=== PATIENT | female | born 1955 | race Caucasian/White ===

== ENCOUNTER 2018-10-27 18:17 | Emergency (ER) | payer BC, OTHER ==
[~2018-10-27] VITALS: Ht 154.9 cm; Wt 68.0 kg
[~2018-10-27 18:17] MED LIST: AZITHROMYCIN 2250 MG PO; IBUPROFEN 200200 M1 PO; IBUPROFEN 600600 M1 PO; PHENERGAN-CODE120 ML PO; PROAIR HFA8.5 GM IH; TIZANIDINE HCL4 MG PO
[2018-10-27] MEDS ORDERED: PREDNISONE 20 M20 MG PO (19:08)
[2018-10-27] MEDS ORDERED: PROMETHAZINE V118 M1 PO (19:08)
[2018-10-27] MEDS ORDERED: DOXYCYCLINE 10100 MG PO (19:08)
[2018-10-27] MEDS ORDERED: PROVENTIL HFA6.7 G1 INH (19:10)
[2018-10-27 19:15] VITALS: BP 132/70
== END 2018-10-27 19:16 | disposition home or self-care (01) ==
LOC: ER 18:17
DX: J18.9 Pneumonia, unspecified organism (principal); F17.210 Nicotine dependence, cigarettes, uncomplicated; J44.9 Chronic obstructive pulmonary disease, unspecified

== ENCOUNTER 2018-11-18 08:18 | Emergency (ER) | payer BC, OTHER ==
[~2018-11-18] VITALS: Ht 154.9 cm; Wt 68.0 kg
[~2018-11-18 08:18] MED LIST changes: +DOXYCYCLINE 10100 MG PO; +PREDNISONE 20 M20 MG PO; +PROMETHAZINE V118 M1 PO; +PROVENTIL HFA6.7 G1 INH
[2018-11-18 08:33] VITALS: BP 120/57
[2018-11-18] MEDS ORDERED: VIRTUSSIN AC L118 ML PO (09:05)
== END 2018-11-18 09:15 | disposition home or self-care (01) ==
LOC: ER 08:18
DX: R05 Cough (principal); F17.210 Nicotine dependence, cigarettes, uncomplicated; J44.9 Chronic obstructive pulmonary disease, unspecified

== ENCOUNTER 2019-03-25 07:13 | Emergency (ER) | payer BC, OTHER ==
[~2019-03-25] VITALS: Ht 157.5 cm; Wt 72.6 kg
[~2019-03-25 07:13] MED LIST changes: +VIRTUSSIN AC L118 ML PO
[2019-03-25] MEDS ORDERED: FLOVENT HFA 4444 MCG INH (08:21)
[2019-03-25] MEDS ORDERED: TESSALON PERLE100 MG PO (08:21)
[2019-03-25 08:56] LABS: ABSOLUTE NEUTROPHILS 8.2 thou/uL (1.4-8.2); BASOPHILS 0.4 % (0.0-2.0); EOSINOPHILS 0.6 % (0.0-3.0); HEMATOCRIT 42.4 % (37.0-47.0); HEMOGLOBIN 14.2 gm/dL (12.0-15.0); LYMPHOCYTES 18.4 % (24.0-44.0); MCH 29.3 pg (26.0-34.0); MCHC 33.5 g/dL (28.0-37.0); MCV 87.4 fL (80.0-100.0); MONOCYTES 9.3 % (1.0-8.0); PLATELET COUNT 133 thou/uL (150-400); POLYS 71.3 % (36.0-66.0); RBC 4.85 mil/uL (4.20-5.00); RDW 12.8 % (10.5-14.5); WBC 11.6 thou/uL (4.0-11.0)
[2019-03-25 09:05] LABS: ANION GAP 9 mmol/L (7-16); BUN 10 mg/dL (7-18); CHLORIDE 103 mmol/L (98-107); CO2 26 mmol/L (21-32); CREATININE 0.7 mg/dL (0.6-1.0); GLUCOSE 132 mg/dL (74-106); POTASSIUM 3.6 mmol/L (3.5-5.1); SODIUM 138 mmol/L (136-145)
[2019-03-25 09:16] LABS: ALBUMIN 3.4 g/dL (3.4-5.0); MAGNESIUM 1.8 mg/dL (1.8-2.4); SGOT 18 U/L (15-37); SGPT 23 U/L (30-65); TOTAL BILIRUBIN 0.6 mg/dL (<0.1-1.0); TOTAL PROTEIN 7.8 g/dL (6.4-8.2); TROPONIN-I <0.06 ng/mL (<0.06)
[2019-03-25] MEDS ORDERED: PROMETHAZINE-C473 ML PO (09:27)
--- NOTE | 2019-03-25 09:36 | EKG ---
[address] [address] ELECTROCARDIOGRAM REPORT Name: CHRISTIANO MATHEWS [id number] ������������������ Admission: 03/25/19 ������������������ Attend Phys: Discharge: ������������������ Date of : 55 Report #: [id number] ����������������������������������������������������������������� [id number] THIS REPORT FOR: //name// [facility] ED Test Date: 2019-03-25 Test Time: 07:54:08 Pat Name: CHRISTIANO MATHEWS Department: Room: Gender: F Director Of Residential Services: ULISES : 1955 Requested By: Albert Douglass Order Number: [id number] MD: Obdulio Bansal Measurements Intervals [place] Rate: 78 P: 82 SD: 151 QRS: 72 QRSD: 96 T: 64 QT: 396 QTc: 452 Interpretive Statements Sinus rhythm Normal tracing No previous ECG available for comparison Electronically Signed On 03-25-2019 9:36:18 CDT by Obdulio Bansal [email or web address] ��������������������������������������������� <ELECTRONICALLY SIGNED> ���������������������������������������� By: Obdulio Bansal MD, [facility] ��������������������������������������������� 03/25/19 [id number] Obdulio Bansal MD, FACC /EPI
[2019-03-25 09:41] VITALS: BP 111/70
== END 2019-03-25 09:38 | disposition home or self-care (01) ==
LOC: ER 07:13
PROVIDERS: Emergency Medicine
DX: J20.9 Acute bronchitis, unspecified (principal); J44.0 Chronic obstructive pulmonary disease with (acute) lower respiratory infection; F17.210 Nicotine dependence, cigarettes, uncomplicated